=== PATIENT | female | born 1940 | race Caucasian/White ===

== ENCOUNTER 2016-11-10 08:00 | Outpatient (CLI) | payer MEDICARE, MEDICAID | END 2016-11-10 08:01 | disposition home or self-care (01) | DX: J11.1 Influenza due to unidentified influenza virus with other respiratory manifestations (principal) ==

== ENCOUNTER 2016-12-07 14:09 | Outpatient (CLI) | payer MEDICARE, MEDICAID | END 2016-12-07 14:10 | disposition home or self-care (01) | DX: Z12.39 Encounter for other screening for malignant neoplasm of breast (principal); Z85.3 Personal history of malignant neoplasm of breast ==

== ENCOUNTER 2016-12-18 19:20 | Outpatient (CLI) | payer MEDICARE, MEDICAID | END 2016-12-18 23:59 | DX: C50.919 Malignant neoplasm of unspecified site of unspecified female breast (principal); E78.5 Hyperlipidemia, unspecified ==

== ENCOUNTER 2017-04-09 07:30 | Outpatient (CLI) | payer MEDICARE, MEDICAID ==
[2017-04-09 08:47] LABS: BASOPHILS # (AUTO) 0.1 10^3/uL (0.0-0.1); BASOPHILS % (AUTO) 1.3 %; EOSINOPHILS % (AUTO) 10.5 %; HCT - HEMATOCRIT 40.8 % (37.0-47.0); HGB - HEMOGLOBIN 13.5 g/dL (12.0-16.0); LYMPHOCYTES # (AUTO) 3.1 10^3/uL (1.5-3.5); LYMPHOCYTES % (AUTO) 33.2 %; MEAN CORPUSCULAR HEMOGLOBIN 29.5 pg (27.0-31.0); MEAN CORPUSCULAR HGB CONC 33.1 g/dL (32.0-36.0); MEAN CORPUSCULAR VOLUME 89.2 fL (81.0-99.0); MEAN PLATELET VOLUME 11.3 fL (7.9-10.8); MONOCYTES # (AUTO) 0.9 10^3/uL (0.0-1.0); MONOCYTES % (AUTO) 9.8 %; NEUTROPHILS # (AUTO) 4.2 10^3/uL (1.5-6.6); NEUTROPHILS % (AUTO) 45.2 %; RED BLOOD COUNT 4.57 10^6/uL (4.20-5.40); RED CELL DISTRIBUTION WIDTH 13.1 % (12.0-15.0); UNCORRECTED WHITE BLOOD COUNT 9.3 x10^3/uL; WHITE BLOOD COUNT 9.3 x10^3/uL (4.8-10.8)
[2017-04-09 08:53] LABS: ALBUMIN/GLOBULIN RATIO 0.9 (1.0-2.2); BILIRUBIN,TOTAL 0.3 mg/dL (0.2-1.0); CALCIUM 9.5 mg/dL (8.5-10.3); CREATININE 1.5 mg/dL (0.4-1.0); POTASSIUM 4.1 mmol/L (3.5-5.0)
== END 2017-04-09 07:31 | disposition home or self-care (01) ==
LOC: LAB.R 07:30
DX: I10 Essential (primary) hypertension (principal)
CPT/HCPCS: 80053; 84443; 85025

== ENCOUNTER 2017-05-25 08:00 | Outpatient (CLI) | payer MEDICARE, MEDICAID ==
[2017-05-25 12:44] LABS: ALBUMIN/GLOBULIN RATIO 0.9 (1.0-2.2); BILIRUBIN,TOTAL 0.3 mg/dL (0.2-1.0); CREATININE 1.6 mg/dL (0.4-1.0); TOTAL PROTEIN 7.6 g/dL (6.7-8.2)
[2017-05-25 12:45] LABS: CALCIUM 9.7 mg/dL (8.5-10.3); POTASSIUM 4.2 mmol/L (3.5-5.0)
== END 2017-05-25 08:01 | disposition home or self-care (01) ==
LOC: LAB.R 08:00
DX: I67.9 Cerebrovascular disease, unspecified (principal); D05.90 Unspecified type of carcinoma in situ of unspecified breast; I10 Essential (primary) hypertension
CPT/HCPCS: 80053; 83615

== ENCOUNTER 2017-06-16 10:19 | Outpatient (CLI) | payer MEDICARE, MEDICAID ==
--- NOTE | 2017-06-16 15:13 | Mammography Report ---
DIGITAL DIAGNOSTIC BILATERAL MAMMOGRAM: 06/16/2017 CLINICAL INDICATION: Right breast cancer, status post lumpectomy. TECHNIQUE: Bilateral CC and MLO views, right true lateral view. The examination had to be performed i n a wheelchair, so magnification views could not be performed. COMPARISON: 12/07/2016, 03/30/2016, 03/24/2016. FINDINGS: The breasts demonstrate scattered fibroglandular densities bilaterally. Postoperative meza ges in the right breast are stable. No suspicious masses, clustered microcalcifications, or regions o f architectural distortion are identified. A few punctate, typically benign calcifications are presen t. IMPRESSION: PROBABLE BENIGN POSTOPERATIVE CHANGES IN THE RIGHT BREAST. RECOMMENDATION: DIAGNOSTIC RIGHT MAMMOGRAM IN SIX MONTHS, TO ASSURE STABILITY. BIRADS CATEGORY 3-PROBABLE BENIGN FINDINGS. STANDARD QUALIFYING STATEMENTS 1. This examination was reviewed with the aid of Computer-Aided Detection (CAD). 2. A negative or benign imaging report should not delay biopsy if clinically suspicious findings are present. Consider surgical consultation if warranted. More than 5% of cancers are not identified by i maging. 3. Dense breasts may obscure an underlying neoplasm. JOB #: [id number] EXT JOB #:[id number]
== END 2017-06-16 10:20 | disposition home or self-care (01) ==
LOC: DI 10:19
PROVIDERS: ATTEND Internal Medicine Hematology & Oncology
DX: C50.911 Malignant neoplasm of unspecified site of right female breast (principal); M81.0 Age-related osteoporosis without current pathological fracture; Z98.890 Other specified postprocedural states
CPT/HCPCS: 77080; G0204; 77066

== ENCOUNTER 2017-06-16 10:19 | Outpatient (CLI) | payer MEDICARE, MEDICAID ==
--- NOTE | 2017-06-17 12:01 | DEXA Report ---
DEXA SCAN: 06/16/2017 CLINICAL INDICATION: Osteoporosis. TECHNIQUE: Dual energy x-ray absorptiometry (DXA) was performed on a [employer] system. Regions measured are the AP spine, femoral neck, and, if needed, forearm. COMPARISON: 05/19/2016. In accordance with the International Society for Clinical Densitometry (ISCD) guidelines, data from previous exams may be reanalyzed using current recommendations and techniques. This is done to allow a more accurate basis for comparison with the current study. FINDINGS: The data for the lumbar spine is as follows: REGION BMD (g/cm/cm) T-SCORE Z-SCORE L1 0.800 -2.8 -1.1 L2 0.881 -2.7 -1.0 L3 0.886 -2.6 -1.0 L4 0.898 -2.5 -0.9 TOTAL 0.868 -2.6 -1.0 NOTE: All evaluable vertebrae are used for classification. The data for the hip is as follows: REGION BMD (g/cm/cm) T-SCORE Z-SCORE Neck 0.610 -3.1 -1.1 TOTAL 0.627 -3.0 -1.2 NOTE: The femoral neck or total proximal femur, whichever is lowest, is used for classification. DXA RESULTS SUMMARY: Spine SCAN DATE AGE BMD T-SCORE BMD CHANGE VS BASELINE BMD CHANGE VS PREVIOUS 4/16/2017 [age] 0[age]868 --- -0.059 -6.4 05/19/2016 [age] 0[age]927 --- --- --- * Denotes significant change at the 95% confidence level. Denotes dissimilar scan types or analysis methods. DXA RESULTS SUMMARY: Total hip SCAN DATE AGE BMD T-SCORE BMD CHANGE VS BASELINE BMD CHANGE VS PREVIOUS 4/16/2017 [age] 0.627 --- 0.028 4.7 05/19/2017 76.1 0.599 --- --- --- * Denotes significant change at the 95% confidence level. Denotes dissimilar scan types or analysis methods. IMPRESSION: 1. THE WHO CLASSIFICATION BASED ON THE INTERNATIONAL REFERENCE STANDARD IS OSTEOPOROSIS. THE FRACTURE RISK IS HIGH. 2. THERE HAS BEEN NO STATISTICALLY SIGNIFICANT INTERVAL CHANGE IN BONE MINERAL DENSITY FROM 05/19/2016. RECOMMENDATION: Patients with diagnosis of osteoporosis or osteopenia should have regular bone mineral density assessment. For those eligible for Medicare, routine testing is allowed once every 2 years. Testing frequency can be increased for patients who have rapidly progressing disease or for those who are receiving medical therapy to restore bone mass. COMMENT: World Health Organization (WHO) definitions for osteoporosis and osteopenia: NORMAL BMD: T-score at -1.0 or higher, fracture risk is low. OSTEOPENIA BMD: T-score between -1.0 and -2.5, fracture risk is increased. OSTEOPOROSIS BMD: T-score at -2.5 or lower, fracture risk high. National Osteoporosis Foundation recommends: 1. Obtain adequate dietary calcium (at least 1200 mg per day) and vitamin D (400 -800 international units per day). 2. Participate, as appropriate, in regular weightbearing and muscle- strengthening exercise. 3. Avoid tobacco use and reduce alcohol and caffeine intake. 4. For more detailed information see the website at www.NOF.org. MTDD
== END 2017-06-16 10:20 | disposition home or self-care (01) ==
LOC: DI 10:19
PROVIDERS: ATTEND Internal Medicine Hematology & Oncology
DX: M81.0 Age-related osteoporosis without current pathological fracture (principal); C50.911 Malignant neoplasm of unspecified site of right female breast
CPT/HCPCS: 77080

== ENCOUNTER 2017-06-18 09:55 | Outpatient (CLI) | payer MEDICARE, MEDICAID ==
[2017-06-18 15:45] LABS: ALBUMIN/GLOBULIN RATIO 0.9 (1.0-2.2); BILIRUBIN,TOTAL 0.4 mg/dL (0.2-1.0); CALCIUM 9.7 mg/dL (8.5-10.3); CREATININE 1.5 mg/dL (0.4-1.0); POTASSIUM 3.8 mmol/L (3.5-5.0); TOTAL PROTEIN 7.8 g/dL (6.7-8.2)
== END 2017-06-18 09:56 | disposition home or self-care (01) ==
LOC: LAB.R 09:55
DX: C50.919 Malignant neoplasm of unspecified site of unspecified female breast (principal)
CPT/HCPCS: 80053; 83615

== ENCOUNTER 2017-12-27 12:15 | Outpatient (CLI) | payer MEDICARE, MEDICAID ==
[2017-12-27 15:22] LABS: BASOPHILS # (AUTO) 0.1 10^3/uL (0.0-0.1); BASOPHILS % (AUTO) 1.4 %; EOSINOPHILS # (AUTO) 0.7 10^3/uL (0.0-0.7); EOSINOPHILS % (AUTO) 8.6 %; LYMPHOCYTES % (AUTO) 34.9 %; MEAN CORPUSCULAR HEMOGLOBIN 29.9 pg (27.0-31.0); MEAN CORPUSCULAR HGB CONC 32.7 g/dL (32.0-36.0); MEAN CORPUSCULAR VOLUME 91.4 fL (81.0-99.0); MEAN PLATELET VOLUME 11.3 fL (7.9-10.8); MONOCYTES # (AUTO) 0.7 10^3/uL (0.0-1.0); NEUTROPHILS % (AUTO) 47.1 %; PLT - PLATELET COUNT 250 10^3/uL (130-450); RED BLOOD COUNT 4.69 10^6/uL (4.20-5.40); RED CELL DISTRIBUTION WIDTH 13.2 % (12.0-15.0); WHITE BLOOD COUNT 8.5 x10^3/uL (4.8-10.8)
== END 2017-12-27 12:16 | disposition home or self-care (01) ==
LOC: LAB.R 12:15
DX: I12.9 Hypertensive chronic kidney disease with stage 1 through stage 4 chronic kidney disease, or unspecified chronic kidney disease (principal); N18.3 Chronic kidney disease, stage 3 (moderate)
CPT/HCPCS: 80053; 85025

== ENCOUNTER 2017-12-28 15:20 | Outpatient (CLI) | payer MEDICARE, MEDICAID ==
[2017-12-28 19:01] LABS: ALBUMIN 3.4 g/dL (3.2-5.5); BILIRUBIN,TOTAL 0.2 mg/dL (0.2-1.0); CALCIUM 9.1 mg/dL (8.5-10.3); CREATININE 1.5 mg/dL (0.4-1.0); TOTAL PROTEIN 6.8 g/dL (6.7-8.2)
== END 2017-12-28 15:21 | disposition home or self-care (01) ==
LOC: LAB.R 15:20
DX: I10 Essential (primary) hypertension (principal)
CPT/HCPCS: 80053

== ENCOUNTER 2018-02-02 13:01 | Outpatient (CLI) | payer MEDICARE, MEDICAID ==
--- NOTE | 2018-02-02 13:52 | Mammography Report ---
DIGITAL DIAGNOSTIC RIGHT MAMMOGRAM: 02/02/2018 CLINICAL INDICATION: Followup right breast cancer, status post lumpectomy. COMPARISON: 06/16/2017, 12/07/2016, 06/12/2016, 03/30/2016, 03/24/2016. TECHNIQUE: Right CC, true lateral, MLO views were obtained. Due to the patient's general condition, magnification views could not be performed. FINDINGS: The right breast demonstrates scattered fibroglandular densities. Postoperative changes are stable. A few punctate, typically benign calcifications are present. No suspicious masses, clustered microcalcifications, or regions of architectural distortion are identified. IMPRESSION: PROBABLE BENIGN POSTOPERATIVE CHANGES. RECOMMENDATIONS: Diagnostic bilateral mammogram in 6 months. BIRADS CATEGORY 3 - PROBABLE BENIGN FINDINGS. STANDARD QUALIFYING STATEMENTS: 1. This examination was reviewed with the aid of Computer-Aided Detection (CAD). 2. A negative or benign imaging report should not delay biopsy if clinically suspicious findings are present. Consider surgical consultation if warranted. More than 5% of cancers are not identified by imaging. 3. Dense breasts may obscure an underlying neoplasm. TD: 02/02/2018 13:51
== END 2018-02-02 13:02 | disposition home or self-care (01) ==
LOC: DI 13:01
PROVIDERS: ATTEND Internal Medicine Hematology & Oncology
DX: C50.111 Malignant neoplasm of central portion of right female breast (principal)

== ENCOUNTER 2018-05-20 08:00 | Outpatient (CLI) | payer MEDICARE, MEDICAID ==
[2018-05-20 17:05] LABS: BASOPHILS # (AUTO) 0.1 10^3/uL (0.0-0.1); EOSINOPHILS # (AUTO) 0.6 10^3/uL (0.0-0.7); EOSINOPHILS % (AUTO) 6.5 %; HGB - HEMOGLOBIN 13.9 g/dL (12.0-16.0); LYMPHOCYTES # (AUTO) 3.2 10^3/uL (1.5-3.5); LYMPHOCYTES % (AUTO) 33.2 %; MEAN CORPUSCULAR HEMOGLOBIN 30.3 pg (27.0-31.0); MEAN CORPUSCULAR HGB CONC 32.8 g/dL (32.0-36.0); MEAN CORPUSCULAR VOLUME 92.5 fL (81.0-99.0); MEAN PLATELET VOLUME 11.3 fL (7.9-10.8); MONOCYTES # (AUTO) 1.1 10^3/uL (0.0-1.0); MONOCYTES % (AUTO) 11.6 %; NEUTROPHILS # (AUTO) 4.5 10^3/uL (1.5-6.6); NEUTROPHILS % (AUTO) 47.7 %; PLT - PLATELET COUNT 260 10^3/uL (130-450); RED BLOOD COUNT 4.57 10^6/uL (4.20-5.40); RED CELL DISTRIBUTION WIDTH 13.2 % (12.0-15.0); WHITE BLOOD COUNT 9.5 x10^3/uL (4.8-10.8)
[2018-05-20 17:35] LABS: ALBUMIN 3.3 g/dL (3.2-5.5); ALBUMIN/GLOBULIN RATIO 0.8 (1.0-2.2); BILIRUBIN,TOTAL 0.7 mg/dL (0.2-1.0); CALCIUM 9.5 mg/dL (8.5-10.3); CREATININE 1.7 mg/dL (0.4-1.0); MAGNESIUM 2.1 mg/dL (1.7-2.8); TOTAL PROTEIN 7.6 g/dL (6.7-8.2)
[2018-05-20 17:39] LABS: PLATELET ESTIMATE, MANUAL NORMAL (130-450,000) (NORMAL); PLATELET MORPHOLOGY PLATELET CLUMPING (NORMAL); RBC MORPHOLOGY (MULTIPLE) NORMAL APPEARANCE (NORMAL)
== END 2018-05-20 08:01 | disposition home or self-care (01) ==
LOC: LAB.R 08:00
DX: R79.89 Other specified abnormal findings of blood chemistry (principal); E61.2 Magnesium deficiency
CPT/HCPCS: 80053; 83735; 85025

== ENCOUNTER 2018-08-11 08:38 | Outpatient (CLI) | payer MEDICARE, MEDICAID ==
--- NOTE | 2018-08-11 10:14 | Mammography Report ---
Reason: RIGHT BREAST CANCER Procedure Date: 08/11/2018 Accession Number: [id number] / [id number] Procedure: SHASTA - Diagnostic Dig Bilat CPT Code: FULL RESULT: EXAM: Diagnostic Dig Bilat DATE: 08/11/2018 9:41 AM CLINICAL HISTORY: Status post right lumpectomy 2016 TECHNIQUE: Bilateral digital imaging. Images are limited due to the patient's inability to cooperate. COMPARISON: 02/02/2018, 06/16/2017, 12/07/2016 and 06/12/2016 FINDINGS: There are scattered fibroglandular densities. Postsurgical changes are present. No suspicious microcalcifications, dominant mass, or new finding IMPRESSION: Benign findings RECOMMENDATION: Routine screening in 1 year unless there is a clinical change.. BIRADS CATEGORY 2: Benign findings STANDARD QUALIFYING STATEMENTS: 1. This examination was reviewed with the aid of Computer-Aided Detection (CAD). 2. A negative or benign imaging report should not delay biopsy if clinically suspicious findings are present. Consider surgical consultation if warrented. More than 5% of cancers are not identified by imaging. 3. Dense breasts may obscure an underlying neoplasm.
== END 2018-08-11 08:39 | disposition home or self-care (01) ==
LOC: DI 08:38
PROVIDERS: ATTEND Internal Medicine Hematology & Oncology
DX: C50.811 Malignant neoplasm of overlapping sites of right female breast (principal)
CPT/HCPCS: 77066

== ENCOUNTER 2018-08-31 14:00 | Outpatient (CLI) | payer MEDICARE, MEDICAID ==
[2018-08-31 14:58] LABS: CALCIUM 9.8 mg/dL (8.5-10.3)
== END 2018-08-31 14:01 ==
LOC: LAB.R 14:00
DX: N18.3 Chronic kidney disease, stage 3 (moderate) (principal)
CPT/HCPCS: 80048

== ENCOUNTER 2018-09-19 08:00 | Outpatient (CLI) | payer MEDICARE, MEDICAID ==
[2018-09-19 18:45] LABS: CALCIUM 9.8 mg/dL (8.5-10.3); CREATININE 0.7 mg/dL (0.4-1.0)
== END 2018-09-19 08:01 | disposition home or self-care (01) ==
LOC: LAB.R 08:00
PROVIDERS: ATTEND Family Medicine
DX: N18.3 Chronic kidney disease, stage 3 (moderate) (principal)
CPT/HCPCS: 80048

== ENCOUNTER 2018-10-24 14:15 | Outpatient (CLI) | payer MEDICARE, MEDICAID ==
[2018-10-24 16:46] LABS: BASOPHILS # (AUTO) 0.1 10^3/uL (0.0-0.1); BASOPHILS % (AUTO) 1.3 %; EOSINOPHILS # (AUTO) 0.8 10^3/uL (0.0-0.7); EOSINOPHILS % (AUTO) 9.6 %; HGB - HEMOGLOBIN 14.6 g/dL (12.0-16.0); LYMPHOCYTES # (AUTO) 2.5 10^3/uL (1.5-3.5); LYMPHOCYTES % (AUTO) 29.8 %; MEAN CORPUSCULAR HEMOGLOBIN 30.1 pg (27.0-31.0); MEAN CORPUSCULAR HGB CONC 32.4 g/dL (32.0-36.0); MEAN PLATELET VOLUME 11.2 fL (7.9-10.8); MONOCYTES # (AUTO) 0.6 10^3/uL (0.0-1.0); MONOCYTES % (AUTO) 7.2 %; NEUTROPHILS # (AUTO) 4.4 10^3/uL (1.5-6.6); NEUTROPHILS % (AUTO) 52.1 %; PLT - PLATELET COUNT 269 10^3/uL (130-450); RED BLOOD COUNT 4.86 10^6/uL (4.20-5.40); RED CELL DISTRIBUTION WIDTH 12.7 % (12.0-15.0); WHITE BLOOD COUNT 8.4 x10^3/uL (4.8-10.8)
[2018-10-24 19:30] LABS: PLATELET ESTIMATE, MANUAL NORMAL (130-450,000) (NORMAL); RBC MORPHOLOGY (MULTIPLE) NORMAL APPEARANCE (NORMAL)
== END 2018-10-24 14:16 | disposition home or self-care (01) ==
LOC: LAB.R 14:15
DX: D64.9 Anemia, unspecified (principal)
CPT/HCPCS: 85025

== ENCOUNTER 2018-11-25 11:52 | Outpatient (CLI) | payer MEDICARE, MEDICAID | END 2018-11-25 11:53 | disposition critical access hospital (66) | LOC: EMS 11:52 | PROVIDERS: ATTEND Surgery | DX: R07.9 Chest pain, unspecified (principal); R06.02 Shortness of breath | CPT/HCPCS: A0425; A0427 ==

== ENCOUNTER 2018-12-01 10:19 | Outpatient (CLI) | payer MEDICARE, MEDICAID | END 2018-12-01 10:20 | disposition critical access hospital (66) | LOC: EMS 10:19 | PROVIDERS: ATTEND Surgery | DX: R51 Headache (principal); W17.89XA Other fall from one level to another, initial encounter; Y93.89 Activity, other specified; Y92.009 Unspecified place in unspecified non-institutional (private) residence as the place of occurrence of the external cause | CPT/HCPCS: A0425; A0429 ==

== ENCOUNTER 2018-12-01 10:25 | Emergency (ER) | payer MEDICARE, MEDICAID ==
--- NOTE | 2018-12-01 10:37 | ED Physician Documentation ---
PD HPI HEAD INJURY - Stated complaint Stated Complaint: GLF - Chief complaint Chief Complaint: Trauma Hd/Nk - History obtained from History obtained from: Patient, EMS - History of Present Illness Mechanism of head injury: Fell Where head injury occurred: Home Timing - onset: Today Location of injury: Left Quality of pain: Pain, Throbbing Associated symptoms: Nausea / vomiting. No: LOC, Neck pain, Paresthesias, Seizures, Ear drainage, Nasal drainage Symptoms improve with: Rest Symptoms worsen with: Palpation, Movement Contributing factors: Other (dementia) Similar symptoms before: Has not had sx before Recently seen: Not recently seen - Additional information Additional information: 78-year-old female with a history of dementia and CVA with left-sided weakness was in her wheelchair [place] [employer] today when she leaned forward and fell out of the wheel wheelchair onto her face. She has a large laceration above her left eye. She indicates that she has been feeling sick recently and does have some nausea now she has a bit of a headache. She has had a cough as well. Review of Systems Constitutional: denies: Fever Eyes: denies: Loss of vision, Decreased vision Nose: denies: Congestion Throat: denies: Sore throat Cardiac: denies: Chest pain / pressure Respiratory: reports: Cough GI: reports: Nausea. denies: Abdominal Pain, Vomiting, Constipation, Diarrhea : denies: Dysuria, Frequency Skin: denies: Rash Musculoskeletal: denies: Neck pain, Back pain, Extremity pain PD PAST MEDICAL HISTORY - Past Medical History Cardiovascular: Hypertension, High cholesterol Respiratory: None Endocrine/Autoimmune: None GI: GERD : None HEENT: None Psych: Depression Musculoskeletal: Osteoarthritis Derm: None - Past Surgical History Past Surgical History: Yes General: Appendectomy - Present Medications Home Medications: Ambulatory Orders Medication Instructions Recorded Confirmed Loratadine [Claritin] 10 mg PO DAILY 06/27/14 11/25/18 raNITIdine [Zantac] 150 mg PO QPM 06/27/14 11/25/18 Fluticasone [Flonase] 1 sprays TAY QPM 08/23/14 11/25/18 Atorvastatin Calcium 20 mg PO QPM 05/18/16 11/25/18 Anastrozole [Arimidex] 1 mg PO DAILY 06/25/16 11/25/18 Multivitamin [Theragran] 1 each PO DAILY 07/20/16 11/25/18 Calcium Carbonate [Calcium] 600 mg PO BID 06/20/18 11/25/18 Cholecalciferol (Vitamin D3) 1,000 unit PO DAILY 06/20/18 11/25/18 [Vitamin D3] Acetaminophen [Tylenol Extra 1,000 mg PO Q6H PRN 11/25/18 11/25/18 Strength] Aspirin Chewable [St Temo 324 mg PO DAILY 11/25/18 11/25/18 Aspirin] House Bowel Program 1 each REVIEW DAILY 11/25/18 11/25/18 Venlafaxine ER [Effexor ER] 37.5 mg PO DAILY 11/25/18 11/25/18 amLODIPine [Norvasc] 5 mg PO DAILY 11/25/18 11/25/18 Carvedilol [Coreg] 3.125 mg PO BID #60 tablet 11/26/18 - Allergies Allergies/Adverse Reactions: Allergies Allergy/AdvReac Type Severity Reaction Status Date / Time codeine Allergy Unknown Verified 12/01/18 10:32 Penicillins Allergy Not known Verified 12/01/18 10:32 sulfamethoxazole Allergy Unknown Verified 12/01/18 10:32 [From ] trimethoprim [From ] Allergy Unknown Verified 12/01/18 10:32 - Social History Does the pt smoke?: No Smoking Status: Never smoker Does the pt drink ETOH?: No Does the pt have substance abuse?: No - Immunizations Immunizations are current?: Yes - POLST Patient has POLST: No PD ED PE NORMAL - Vitals Vital signs reviewed: Yes (hypertensive ) - General General: No acute distress, Well developed/nourished, Other (gapping laceration above the left eye is impressive Y-shaped and 6cm total. The laceration is throught the eyebrow and the jose-orbital tissues are markedly swollen and ecchymotic. ) - HEENT HEENT: PERRL, EOMI, Other (There is the gapping wound the eye under the swelling is intact with vision normal per patient. There is no crepitance, step off or other suggestion of fracture. There is no entrapment of the EOM) - Neck Neck: Supple, no meningeal sign, No bony TTP - Respiratory Respiratory: No respiratory distress - Derm Derm: Normal color, Warm and dry, No rash - Extremities Extremities: No deformity, No edema - Neuro Neuro: No motor deficit, Other (speech has a delay in execution of motor commands. ) Eye Opening: To Voice Motor: Obeys Commands Verbal: Oriented GCS Score: 14 - Psych Psych: Normal mood, Normal affect Results - Vitals Vitals: Vital Signs - 24 hr 12/01/18 12/01/18 10:28 12:26 Temperature 36.6 C Heart Rate 79 94 Respiratory 20 16 Rate Blood Pressure 178/93 H 160/124 H O2 Saturation 96 99 Oxygen O2 Source [] Room air O2 Source Room air - Labs Labs: Laboratory Tests 12/01/18 12/01/18 12/01/18 11:05 11:05 11:05 WBC 11.1 H RBC 4.99 Hgb 14.8 Hct 44.3 MCV 88.8 MCH 29.7 MCHC 33.4 RDW 13.0 Plt Count 332 MPV 10.4 Neut # (Auto) 7.2 H Lymph # (Auto) 1.9 Island # (Auto) 1.1 H Eos # (Auto) 0.8 H Baso # (Auto) 0.1 Absolute Nucleated RBC 0.01 Nucleated RBC % 0.1 Manual Slide Review Indicated Platelet Morphology RARE GIANT PLATELETS Sodium 141 Potassium 3.7 Chloride 100 L Carbon Dioxide 29 Anion Gap 12.0 BUN 33 H Creatinine 1.5 H Estimated GFR (MDRD) 33 L Glucose 140 H Calcium 10.3 Total Bilirubin 0.4 AST 21 ALT 13 Alkaline Phosphatase 114 Troponin I < 0.04 Total Protein 8.6 H Albumin 3.7 Globulin 4.9 H Albumin/Globulin Ratio 0.8 L Lipase 59 H Urine Color Urine Clarity Urine pH Ur Specific Dubois Urine Protein Urine Glucose (UA) Urine Ketones Urine Occult Blood Urine Nitrite Urine Bilirubin Urine Urobilinogen Ur Leukocyte Esterase Ur Microscopic Review Urine Culture Comments 12/01/18 11:15 WBC RBC Hgb Hct MCV MCH MCHC RDW Plt Count MPV Neut # (Auto) Lymph # (Auto) Island # (Auto) Eos # (Auto) Baso # (Auto) Absolute Nucleated RBC Nucleated RBC % Manual Slide Review Platelet Morphology Sodium Potassium Chloride Carbon Dioxide Anion Gap BUN Creatinine Estimated GFR (MDRD) Glucose Calcium Total Bilirubin AST ALT Alkaline Phosphatase Troponin I Total Protein Albumin Globulin Albumin/Globulin Ratio Lipase Urine Color YELLOW Urine Clarity CLEAR Urine pH 7.0 Ur Specific Dubois 1.020 Urine Protein NEGATIVE Urine Glucose (UA) NEGATIVE Urine Ketones NEGATIVE Urine Occult Blood NEGATIVE Urine Nitrite NEGATIVE Urine Bilirubin NEGATIVE Urine Urobilinogen 0.2 (NORMAL) Ur Leukocyte Esterase NEGATIVE Ur Microscopic Review NOT INDICATED Urine Culture Comments NOT INDICATED - Rads (name of study) CT head without Radiology: Prelim report reviewed (Impression: 1. Soft tissue swelling over the left superior orbital rim but no underlying fracture. 2 No evidence of acute intracranial injury or hemorrhage. 3 Sequelae of remote bilateral infarctions as described, more prominent on the right.), EMP read indepedently, See rad report CT cervical spine Radiology: Prelim report reviewed (Impression: 1. Multilevel degenerative changes commensurate with age. No appreciable acute fracture or malalignment.), EMP read indepedently, See rad report chest Radiology: Prelim report reviewed (Impression: 1. No appreciable fracture or pneumothorax. 2 Stable convex contour prominence of the right superior mediastinum as described, vascular ectasia/aneurysm is favored given stability. 3 Stable mild cardiomegaly. No edema.), EMP read indepedently, See rad report Procedures - Laceration (location) left eyebrow Length in cm: 6 Wound type: Stellate, Irregular, Clean Neurovascular status: Sensory intact, Motor intact Anesthesia: Lidocaine 1%, With bicarb Wound Preparation: Hibiclens, Irrigated copiously NS, Wound explored, To the base, Multiple flaps aligned Skin layer closure: Nylon, Interrupted, Size #-0 - enter number (5-0 and 6-0) Other: Patient tolerated well, No complications, Neurovascular intact, Tetanus UTD Complexity: Intermediate PD MEDICAL DECISION MAKING - ED course Complexity details: reviewed old records, reviewed results, re-evaluated umm pinedo, considered differential, d/w patient ED course: 78-year-old female with a history of CVA and hypertension comes to the emergency department by ambulance from [facility] after falling forward out of her wheelchair and striking her forehead. She does not usually get out of her wheelchair by herself and she attempted this today. She denies any loss of consciousness she does have some nausea CT scan of the head was without evidence of intracranial hemorrhage or evidence of fracture along the orbital rim. The patient's laceration is repaired in the emergency department. The wound was gaping and very impressive looking and appears to have come back together. Departure - Departure Disposition: 01 Home, Self Care Clinical Impression: Fall from ground level Eyebrow laceration Qualifiers: Encounter type: initial encounter Laterality: left Qualified Code(s): S01.112A - Laceration without foreign body of left eyelid and periocular area, initial encounter Condition: Stable Instructions: ED Head Injury Closed, ED Laceration Facial Sutr Tape Follow-Up: Julián Orozco MD [Primary Care Provider] - Comments: Sutures should be removed in 5-7 days.
--- NOTE | 2018-12-01 11:15 | CT Report ---
Reason: fall deep lac to left forehead. Procedure Date: 12/01/2018 Accession Number: [id number] / [id number] Procedure: CT - Head W/O CPT Code: FULL RESULT: EXAM: CT HEAD EXAM DATE: 12/01/2018 10:47 AM. CLINICAL HISTORY: Fall, deep laceration to left forehead. COMPARISON: HEAD W/O 08/30/2015 12:46 PM. TECHNIQUE: Multiaxial CT images were obtained from the foramen magnum to the vertex. Reformats: Sagittal and coronal. IV contrast: None. In accordance with CT protocol optimization, one or more of the following dose reduction techniques were utilized for this exam: automated exposure control, adjustment of mA and/or KV based on patient size, or use of iterative reconstructive technique. FINDINGS: Parenchyma: There is stable encephalomalacia involving the entirety of the right MCA distribution parenchyma of the right hemisphere from prior infarction. There is encephalomalacia of the left frontal lobe, new since comparison studies of 2014 but also consistent with remote infarction. No appreciable acute infarction. There is no evidence of acute intracranial hemorrhage, mass-effect or abnormal extra-axial fluid collection. Extraaxial Spaces: The ventricles, sulci and cisterns are prominent consistent with aging-related atrophy and ex vacuo dilatation from prior infarction. No subdural or epidural collections identified. Ventricles: As above. Sinuses and Orbits: Imaged paranasal sinuses, orbits, and mastoids show no significant abnormality. Bones: No evidence of fracture or calvarial defect. Other: Soft tissue swelling over the left superior orbital ridge. IMPRESSION: 1. Soft tissue swelling over the left superior orbital rim but no underlying fracture. 2. No evidence of acute intracranial injury or hemorrhage. 3. Sequela of remote bilateral infarctions as described, more prominent on the right. RADIA
[2018-12-01 11:17] LABS: BASOPHILS # (AUTO) 0.1 10^3/uL (0.0-0.1); EOSINOPHILS # (AUTO) 0.8 10^3/uL (0.0-0.7); EOSINOPHILS % (AUTO) 6.9 %; HGB - HEMOGLOBIN 14.8 g/dL (12.0-16.0); LYMPHOCYTES # (AUTO) 1.9 10^3/uL (1.5-3.5); MEAN CORPUSCULAR HEMOGLOBIN 29.7 pg (27.0-31.0); MEAN CORPUSCULAR HGB CONC 33.4 g/dL (32.0-36.0); MEAN CORPUSCULAR VOLUME 88.8 fL (81.0-99.0); MEAN PLATELET VOLUME 10.4 fL (7.9-10.8); MONOCYTES # (AUTO) 1.1 10^3/uL (0.0-1.0); MONOCYTES % (AUTO) 10.3 %; NEUTROPHILS # (AUTO) 7.2 10^3/uL (1.5-6.6); NEUTROPHILS % (AUTO) 64.8 %; PLT - PLATELET COUNT 332 10^3/uL (130-450); RED BLOOD COUNT 4.99 10^6/uL (4.20-5.40); WHITE BLOOD COUNT 11.1 x10^3/uL (4.8-10.8)
--- NOTE | 2018-12-01 11:20 | XRAY Report ---
Reason: cough wheezing Procedure Date: 12/01/2018 Accession Number: [id number] / [id number] Procedure: XR - Chest 1 View X-Ray CPT Code: 90339 FULL RESULT: EXAM: CHEST RADIOGRAPHY EXAM DATE: 12/01/2018 10:49 AM. CLINICAL HISTORY: Cough, wheezing. Ground-level fall. COMPARISON: CHEST 2 VIEW 11/25/2018 12:43 PM CHEST 1 VIEW 06/12/2016 9:37 AM. TECHNIQUE: 1 view. FINDINGS: Lungs/Pleura: No focal opacities evident. No pleural effusion. No pneumothorax. Mediastinum: Heart size remains borderline enlarged for technique. There is a stable convex contour prominence of the right paratracheal mediastinum unchanged compared to 2016. Differential would include stable mass versus vascular ectasia and/or aneurysm (favored). Other: No appreciable fractures. IMPRESSION: 1. No appreciable fracture or pneumothorax. 2. Stable convex contour prominence of the right superior mediastinum as described, vascular ectasia/aneurysm is favored given stability. 3. Stable mild cardiomegaly. No edema. RADIA
--- NOTE | 2018-12-01 11:31 | CT Report ---
Reason: fall head injury Procedure Date: 12/01/2018 Accession Number: [id number] / [id number] Procedure: CT - Cervical Spine W/O CPT Code: FULL RESULT: EXAM: CT CERVICAL SPINE WITHOUT CONTRAST DATE: 12/01/2018 10:55 AM. HISTORY: Fall, head injury. COMPARISONS: HEAD W/O 08/30/2015 12:46 PM. TECHNIQUE: Thin-section axial images were acquired of the cervical spine without contrast. Post-processing: Coronal and sagittal reformats. Other: None. In accordance with CT protocol optimization, one or more of the following dose reduction techniques were utilized for this exam: automated exposure control, adjustment of mA and/or KV based on patient size, or use of iterative reconstructive technique. FINDINGS: Alignment: There is straightening of the cervical lordosis. There is 2 mm of degenerative appearing anterolisthesis of C3 on C4 and T1 on T2. In addition, the head is tilted slightly downward to the left and is rotated to the right within physiologic limits. Bones: No fracture or bone lesion. Interspace Levels/Facets: C1-C2: Unremarkable. C2-C3: Mild bilateral facet arthrosis. C3-C4: Mild disk space narrowing. 2 mm of degenerative appearing anterolisthesis. Moderate facet arthrosis. C4-C5: Moderate degenerative disk space narrowing with endplate sclerosis and mild marginal osteophyte. Moderate left-sided facet arthrosis C5-C6: Moderate degenerative disk space narrowing and mild marginal osteophyte. C6-C7: Moderate disk space narrowing and mild marginal osteophyte. C7-T1: Unremarkable. Musculature: Normal. No fatty atrophy. Other: The paravertebral and prevertebral soft tissues are unremarkable. Nonspecific mild pleural parenchymal scarring changes noted. Note: Right paratracheal convexity noted on chest x-ray is confirmed to represent vascular ectasia on CT. IMPRESSION: 1. Multilevel degenerative changes commensurate with age. No appreciable acute fracture or malalignment. Note: Stable right paratracheal convexity mentioned on chest x-ray report is confirmed to represent vascular ectasia on this CT. RADIA
[2018-12-01 11:33] LABS: BILIRUBIN,URINE NEGATIVE (NEGATIVE); GLUCOSE, URINE (UA) NEGATIVE (NEGATIVE); KETONES,URINE (UA) NEGATIVE (NEGATIVE); LEUKOCYTE ESTERASE, URINE NEGATIVE (NEGATIVE); NITRITE,URINE NEGATIVE (NEGATIVE); OCCULT BLOOD,URINE NEGATIVE (NEGATIVE); PROTEIN,URINE NEGATIVE (NEGATIVE); UROBILINOGEN,URINE 0.2 (NORMAL) E.U./dL (NORMAL)
[2018-12-01 11:39] LABS: ALBUMIN 3.7 g/dL (3.2-5.5); ALBUMIN/GLOBULIN RATIO 0.8 (1.0-2.2); BILIRUBIN,TOTAL 0.4 mg/dL (0.2-1.0); CALCIUM 10.3 mg/dL (8.5-10.3); CREATININE 1.5 mg/dL (0.4-1.0); TOTAL PROTEIN 8.6 g/dL (6.7-8.2)
[2018-12-01 11:40] LABS: PLATELET MORPHOLOGY RARE GIANT PLATELETS (NORMAL)
[2018-12-01 11:41] LABS: CLARITY,URINE CLEAR (CLEAR)
[2018-12-01] MEDS ORDERED: BUFFERED LIDOCAINE 10 ML SYRINGE SUBQ STA (14:07)
[2018-12-01 15:21] VITALS: BP 179/98
[2018-12-01] MEDS ORDERED: BACITRACIN OINT TOP ONE (15:48)
== END 2018-12-01 16:30 | disposition home or self-care (01) ==
LOC: EDUNIT# → ED 10:25
DX: S01.112A Laceration without foreign body of left eyelid and periocular area, initial encounter (principal); W05.0XXA Fall from non-moving wheelchair, initial encounter; Y92.89 Other specified places as the place of occurrence of the external cause; Z86.73 Personal history of transient ischemic attack (TIA), and cerebral infarction without residual deficits; I10 Essential (primary) hypertension; F03.90 Unspecified dementia, unspecified severity, without behavioral disturbance, psychotic disturbance, mood disturbance, and anxiety; E78.00 Pure hypercholesterolemia, unspecified; Z79.82 Long term (current) use of aspirin
CPT/HCPCS: 12053; 36415; 70450; 71045; 72125; 80053; 81003; 83690; 84484; 85025; 99283; A9270; 81001; 87086

== ENCOUNTER 2018-12-14 13:51 | Outpatient (CLI) | payer MEDICARE, MEDICAID | END 2018-12-14 13:52 | disposition critical access hospital (66) | LOC: EMS 13:51 | PROVIDERS: ATTEND Surgery | DX: R06.02 Shortness of breath (principal) ==

== ENCOUNTER 2018-12-14 13:56 | Emergency (ER) | payer MEDICARE, MEDICAID ==
--- NOTE | 2018-12-14 14:06 | ED Physician Documentation ---
PD HPI CHEST PAIN - Stated complaint Stated Complaint: BRADYCARDIC - History obtained from History obtained from: Patient, EMS - History of Present Illness Timing - onset: Today (This is an 78-year-old woman with history of CVA. She was hospitalized about 3 weeks ago for symptomatic bradycardia with angina. She ruled out at the time and was taken off her beta-blockers and she is not on any AV jacky blockers. Today she developed dizziness and nausea and a near syncopal episode. She was noted to be very bradycardic and brought in by ambulance. She is interested in potential pacemaker placement.) - Additional information Additional information: She received atropine on route and on arrival her pulse is 50-55, the rhythm strip from the ambulance was a junctional rhythm in the 30s. Review of Systems Ten Systems: 10 systems reviewed and negative Constitutional: reports: Reviewed and negative Cardiac: denies: Chest pain / pressure, Palpitations Respiratory: denies: Dyspnea, Cough PD PAST MEDICAL HISTORY - Past Medical History Cardiovascular: Hypertension, High cholesterol Respiratory: None Endocrine/Autoimmune: None GI: GERD : None HEENT: None Psych: Depression Musculoskeletal: Osteoarthritis Derm: None - Past Surgical History Past Surgical History: Yes General: Appendectomy - Present Medications Home Medications: Ambulatory Orders Medication Instructions Recorded Confirmed Loratadine [Claritin] 10 mg PO DAILY 06/27/14 12/14/18 RX: raNITIdine [Zantac] 150 mg PO QPM 06/27/14 12/14/18 Fluticasone [Flonase] 1 sprays TAY QPM 08/23/14 12/14/18 RX: Atorvastatin Calcium 20 mg PO QPM 05/18/16 12/14/18 Anastrozole [Arimidex] 1 mg PO DAILY 06/25/16 12/14/18 Multivitamin [Theragran] 1 each PO DAILY 07/20/16 12/14/18 Calcium Carbonate [Calcium] 600 mg PO BID 06/20/18 12/14/18 Cholecalciferol (Vitamin D3) 1,000 unit PO DAILY 06/20/18 12/14/18 [Vitamin D3] Acetaminophen [Tylenol Extra 1,000 mg PO Q6H PRN 11/25/18 12/14/18 Strength] House Bowel Program 1 each REVIEW DAILY 11/25/18 11/25/18 RX: Aspirin Chewable [St Temo 324 mg PO DAILY 11/25/18 12/14/18 Aspirin] Venlafaxine ER [Effexor ER] 37.5 mg PO DAILY 11/25/18 12/14/18 amLODIPine [Norvasc] 5 mg PO DAILY 11/25/18 12/14/18 - Allergies Allergies/Adverse Reactions: Allergies Allergy/AdvReac Type Severity Reaction Status Date / Time codeine Allergy Unknown Verified 12/01/18 10:32 Penicillins Allergy Not known Verified 12/01/18 10:32 sulfamethoxazole Allergy Unknown Verified 12/01/18 10:32 [From ] trimethoprim [From ] Allergy Unknown Verified 12/14/18 14:05 - Social History Does the pt smoke?: No Smoking Status: Never smoker Does the pt drink ETOH?: No Does the pt have substance abuse?: No - Immunizations Immunizations are current?: Yes - POLST Patient has POLST: No PD ED PE NORMAL - Vitals Vital signs reviewed: Yes - General General: Alert and oriented X 3, No acute distress - HEENT HEENT: PERRL, EOMI - Neck Neck: Supple, no meningeal sign, No bony TTP - Cardiac Cardiac: RRR, No murmur - Respiratory Respiratory: No respiratory distress, Clear bilaterally - Abdomen Abdomen: Non tender - Extremities Extremities: No edema, No calf tenderness / cord - Neuro Neuro: Alert and oriented X 3, Normal speech Results - Vitals Vitals: Vital Signs - 24 hr 12/14/18 12/14/18 12/14/18 13:57 14:10 14:54 Temperature 36.2 C L 36 C L Heart Rate 56 L 41 L 41 L Respiratory 22 17 13 Rate Blood Pressure 178/144 H 114/68 103/77 O2 Saturation 99 98 100 12/14/18 12/14/18 12/14/18 15:21 16:00 17:00 Temperature Heart Rate 45 L 89 92 Respiratory 15 18 16 Rate Blood Pressure 133/86 H 140/128 H 149/86 H O2 Saturation 97 96 95 12/14/18 12/14/18 12/14/18 17:30 18:01 18:43 Temperature 37.1 C 36.7 C Heart Rate 84 88 86 Respiratory 19 15 23 Rate Blood Pressure 155/110 H 147/90 H 148/96 H O2 Saturation 88 L 96 96 12/14/18 12/14/18 12/14/18 19:04 19:30 20:00 Temperature Heart Rate 80 82 67 Respiratory 18 21 12 Rate Blood Pressure 146/94 H 113/91 H 172/70 H O2 Saturation 95 95 100 Oxygen O2 Source [] Room air O2 Source Mechanical ventilator - EKG (time done) 1406 Rate: Rate (enter#) (42) Rhythm: Other (Looks like an indeterminate type II heart block with every other P wave conducting.) Ischemia: Non specific changes - Labs Labs: Laboratory Tests 12/14/18 12/14/18 12/14/18 14:06 14:06 14:06 WBC 14.5 H RBC 4.94 Hgb 14.5 Hct 43.9 MCV 89.0 MCH 29.3 MCHC 32.9 RDW 13.5 Plt Count 340 MPV 11.0 H Neut # (Auto) 10.4 H Lymph # (Auto) 2.5 [place] # (Auto) 0.9 Eos # (Auto) 0.6 Baso # (Auto) 0.1 Absolute Nucleated RBC 0.01 Nucleated RBC % 0.1 Manual Slide Review Indicated Platelet Estimate NORMAL (130-450,000) Platelet Morphology NORMAL APPEARANCE RBC Morph Micro Appear NORMAL APPEARANCE Sodium 138 Potassium 4.7 Chloride 97 L Carbon Dioxide 30 Anion Gap 11.0 BUN 42 H Creatinine 2.2 H Estimated GFR (MDRD) 21 L Glucose 163 H Calcium 11.1 H Total Bilirubin 0.6 AST 23 ALT 16 Alkaline Phosphatase 111 Troponin I < 0.04 Total Protein 8.4 H Albumin 3.9 Globulin 4.5 H Albumin/Globulin Ratio 0.9 L Lipase 79 H PD MEDICAL DECISION MAKING - ED course ED course: Spoke with translational specialist [facility] who will see in consult, deferred to hospitalist for transfer. 1405 I called the son, there was no answer I left a voicemail to call back. Discussing with the patient though she is amenable to a pacemaker, which she obviously will need at this juncture. She was accepted by Dr. Hernandez to [facility] at 1420 and cobras were completed. She needs transfer to a higher level of care for cardiology consultation and pacemaker placement. She became more bradycardic and the atropine was repeated at 2:30 PM. After the second dose of atropine she actually converted back to normal sinus rhythm and remained in the normal heart rate for the remainder of her emergency department stay which was prolonged as there was a significant delay for bed confirmation to [facility] - Critical Care Time(min): 38 Time Includes: Direct patient care, Review records, Reassess patient, Document care, Coordinate care, Medical consult Data interpretation: Labs, Pulse ox Procedures included in critical care time: Peripheral IV Procedures excluded from critical care time: EKG Departure - Departure Disposition: 02 Transfer Acute Care Hosp Clinical Impression: Bradycardia Condition: Critical Discharge Date/Time: 12/14/18 20:00
[2018-12-14 14:28] LABS: ALBUMIN 3.9 g/dL (3.2-5.5); ALBUMIN/GLOBULIN RATIO 0.9 (1.0-2.2); BILIRUBIN,TOTAL 0.6 mg/dL (0.2-1.0); CALCIUM 11.1 mg/dL (8.5-10.3); CREATININE 2.2 mg/dL (0.4-1.0); TOTAL PROTEIN 8.4 g/dL (6.7-8.2)
[2018-12-14] MEDS ORDERED: ATROPINE ABBOJECT 0.5 MG/5 ML SYRINGE IVP STA (14:29)
[2018-12-14] MEDS ORDERED: ATROPINE ABBOJECT 1 MG/10 ML SYRINGE IVP ONE (14:34)
[2018-12-14] MEDS ORDERED: SODIUM CHLORIDE 0.9% 1,000 ML IV ONE (14:47)
[2018-12-14 14:49] LABS: BASOPHILS # (AUTO) 0.1 10^3/uL (0.0-0.1); EOSINOPHILS # (AUTO) 0.6 10^3/uL (0.0-0.7); EOSINOPHILS % (AUTO) 4.2 %; HGB - HEMOGLOBIN 14.5 g/dL (12.0-16.0); LYMPHOCYTES # (AUTO) 2.5 10^3/uL (1.5-3.5); MEAN CORPUSCULAR HEMOGLOBIN 29.3 pg (27.0-31.0); MEAN CORPUSCULAR HGB CONC 32.9 g/dL (32.0-36.0); MONOCYTES # (AUTO) 0.9 10^3/uL (0.0-1.0); MONOCYTES % (AUTO) 6.4 %; NEUTROPHILS # (AUTO) 10.4 10^3/uL (1.5-6.6); NEUTROPHILS % (AUTO) 71.4 %; PLATELET ESTIMATE, MANUAL NORMAL (130-450,000) (NORMAL); PLATELET MORPHOLOGY NORMAL APPEARANCE (NORMAL); PLT - PLATELET COUNT 340 10^3/uL (130-450); RBC MORPHOLOGY (MULTIPLE) NORMAL APPEARANCE (NORMAL); RED BLOOD COUNT 4.94 10^6/uL (4.20-5.40); RED CELL DISTRIBUTION WIDTH 13.5 % (12.0-15.0); WHITE BLOOD COUNT 14.5 x10^3/uL (4.8-10.8)
[2018-12-14 20:42] VITALS: BP 172/70
== END 2018-12-14 20:00 | disposition short-term general hospital (02) ==
LOC: EDUNIT# → ED 13:56
DX: R00.1 Bradycardia, unspecified (principal); I10 Essential (primary) hypertension; E78.00 Pure hypercholesterolemia, unspecified; Z79.82 Long term (current) use of aspirin; Z86.73 Personal history of transient ischemic attack (TIA), and cerebral infarction without residual deficits
CPT/HCPCS: 36415; 80053; 83690; 84484; 85025; 93005; 96361; 96374; 99285; 99291

== ENCOUNTER 2018-12-14 20:00 | Outpatient (CLI) | payer MEDICARE, MEDICAID | END 2018-12-14 20:01 | disposition short-term general hospital (02) | LOC: EMS 20:00 | PROVIDERS: ATTEND Surgery | DX: R00.1 Bradycardia, unspecified (principal); R06.02 Shortness of breath | CPT/HCPCS: A0425; A0427 ==

== ENCOUNTER 2019-02-04 08:00 | Outpatient (CLI) | payer MEDICARE, MEDICAID ==
[2019-02-04 17:07] LABS: CALCIUM 9.7 mg/dL (8.5-10.3); CREATININE 1.3 mg/dL (0.4-1.0)
== END 2019-02-04 23:59 | disposition home or self-care (01) ==
LOC: LAB.R 08:00
PROVIDERS: ATTEND Family Medicine
DX: N18.3 Chronic kidney disease, stage 3 (moderate) (principal)
CPT/HCPCS: 80048

== ENCOUNTER 2019-03-07 08:00 | Outpatient (CLI) | payer MEDICARE, MEDICAID ==
[2019-03-07 17:29] LABS: CALCIUM 9.4 mg/dL (8.5-10.3); CREATININE 1.4 mg/dL (0.4-1.0)
== END 2019-03-07 23:59 | disposition home or self-care (01) ==
LOC: LAB.R 08:00
DX: E87.5 Hyperkalemia (principal)
CPT/HCPCS: 80048

== ENCOUNTER 2019-04-25 15:05 | Outpatient (CLI) | payer MEDICARE, MEDICAID, OTHER ==
[2019-04-25 15:30] LABS: BASOPHILS # (AUTO) 0.1 10^3/uL (0.0-0.1); BASOPHILS % (AUTO) 1.2 %; EOSINOPHILS # (AUTO) 0.8 10^3/uL (0.0-0.7); HGB - HEMOGLOBIN 14.5 g/dL (12.0-16.0); LYMPHOCYTES # (AUTO) 2.7 10^3/uL (1.5-3.5); LYMPHOCYTES % (AUTO) 30.6 %; MEAN CORPUSCULAR HEMOGLOBIN 29.7 pg (27.0-31.0); MEAN CORPUSCULAR HGB CONC 31.8 g/dL (32.0-36.0); MEAN CORPUSCULAR VOLUME 93.4 fL (81.0-99.0); MEAN PLATELET VOLUME 11.7 fL (7.9-10.8); MONOCYTES # (AUTO) 0.9 10^3/uL (0.0-1.0); MONOCYTES % (AUTO) 10.4 %; NEUTROPHILS # (AUTO) 4.2 10^3/uL (1.5-6.6); NEUTROPHILS % (AUTO) 48.6 %; PLT - PLATELET COUNT 299 10^3/uL (130-450); RED BLOOD COUNT 4.88 10^6/uL (4.20-5.40); RED CELL DISTRIBUTION WIDTH 12.6 % (12.0-15.0); WHITE BLOOD COUNT 8.7 x10^3/uL (4.8-10.8)
[2019-04-25 15:43] LABS: CALCIUM 9.9 mg/dL (8.5-10.3); CREATININE 1.5 mg/dL (0.4-1.0); MAGNESIUM 2.2 mg/dL (1.7-2.8); PHOSPHORUS 3.5 mg/dL (2.5-4.6)
== END 2019-04-25 23:59 | disposition home or self-care (01) ==
LOC: LAB.R 15:05
DX: R79.89 Other specified abnormal findings of blood chemistry (principal); E83.30 Disorder of phosphorus metabolism, unspecified; E61.2 Magnesium deficiency
CPT/HCPCS: 80048; 83735; 84100; 85025

== ENCOUNTER 2019-08-10 13:37 | Outpatient (CLI) | payer MEDICARE, MEDICAID ==
--- NOTE | 2019-08-11 10:06 | Mammography Report ---
Reason: HX RIGHT BREAST CA Procedure Date: 08/10/2019 Accession Number: [id number] / [id number] Procedure: [facility]ASTA - Screening Mammo Dig Bilat CPT Code: FULL RESULT: EXAM: Screening Mammo Dig Bilat DATE: 08/10/2019 2:44 PM CLINICAL HISTORY: Screening encounter. Personal history of breast cancer status post right breast lumpectomy. TECHNIQUE: (B) - Bilateral CC, laterally exaggerated CC, MLO views were obtained. COMPARISON: 08/11/2018 through 03/24/2016. PARENCHYMAL PATTERN: (A) - The breast(s) demonstrate(s) scattered fibroglandular densities. FINDINGS: Postsurgical changes are present. There are no suspicious masses, calcifications, or areas of distortion. IMPRESSION: Benign findings. BI-RADS category 2. RECOMMENDATION: (ANNUAL) - Recommend routine annual screening mammography. BI-RADS CATEGORY: (2) - Benign Findings. STANDARD QUALIFYING STATEMENTS: 1. This examination was not reviewed with the aid of Computer-Aided Detection (CAD). 2. A negative or benign imaging report should not preclude biopsy if clinically suspicious findings are present. 3. Dense breasts may obscure an underlying neoplasm. 4. This examination was reviewed without the aid of 3D breast imaging (tomosynthesis).
== END 2019-08-10 13:38 | disposition home or self-care (01) ==
LOC: DI 13:37
PROVIDERS: ATTEND Internal Medicine Hematology & Oncology
DX: Z12.31 Encounter for screening mammogram for malignant neoplasm of breast (principal); Z85.3 Personal history of malignant neoplasm of breast
CPT/HCPCS: 77067

== ENCOUNTER 2019-09-01 12:36 | Outpatient (CLI) | payer MEDICARE, MEDICAID | END 2019-09-01 12:37 | disposition critical access hospital (66) | LOC: EMS 12:36 | PROVIDERS: ATTEND Surgery | DX: S01.112A Laceration without foreign body of left eyelid and periocular area, initial encounter (principal); M54.2 Cervicalgia; W19.XXXA Unspecified fall, initial encounter; Y92.122 Bedroom in nursing home as the place of occurrence of the external cause | CPT/HCPCS: A0425; A0429 ==

== ENCOUNTER 2019-09-01 12:40 | Emergency (ER) | payer MEDICARE, MEDICAID ==
--- NOTE | 2019-09-01 13:02 | ED Physician Documentation ---
PD HPI HEAD INJURY - Stated complaint Stated Complaint: GLF/ HEAD LAC - History obtained from History obtained from: EMS, Caregiver - History of Present Illness Mechanism of head injury: Fell Where head injury occurred: Home Timing - onset: Today Location of injury: Left Associated symptoms: No: LOC Recently seen: Not recently seen - Additional information Additional information: This is an 79-year-old woman who presents with from [facility] with complaints that she had an unwitnessed fall with a laceration above the left eyebrow. Patient has a history of dementia and L hemiplegia. She is on baby aspirin. She is telling me the only thing that hurts is the wound. She cannot tell me where she is or what day it is. She will not open her eyes because she said the lights are too bright. She is not able to provide any further history. Review of Systems Unable to obtain: Dementia PD PAST MEDICAL HISTORY - Past Medical History Cardiovascular: Hypertension, High cholesterol Respiratory: None Endocrine/Autoimmune: None GI: GERD : None HEENT: None Psych: Depression Musculoskeletal: Osteoarthritis Derm: None - Past Surgical History Past Surgical History: Yes General: Appendectomy - Present Medications Home Medications: Ambulatory Orders Medication Instructions Recorded Confirmed Loratadine [Claritin] 10 mg PO DAILY 06/27/14 06/19/19 raNITIdine [Zantac] 150 mg PO QPM 06/27/14 06/19/19 Fluticasone [Flonase] 1 sprays TAY QPM 08/23/14 06/19/19 Atorvastatin Calcium 20 mg PO QPM 05/18/16 06/19/19 Anastrozole [Arimidex] 1 mg PO DAILY 06/25/16 06/19/19 Multivitamin [Theragran] 1 each PO DAILY 07/20/16 06/19/19 Calcium Carbonate [Calcium] 600 mg PO BID 06/20/18 06/19/19 Cholecalciferol (Vitamin D3) 1,000 unit PO DAILY 06/20/18 06/19/19 [Vitamin D3] Acetaminophen [Tylenol Extra 1,000 mg PO Q6H PRN 11/25/18 06/19/19 Strength] Aspirin Chewable [St Temo 324 mg PO DAILY 11/25/18 06/19/19 Aspirin] House Bowel Program 1 each REVIEW DAILY 11/25/18 06/19/19 Venlafaxine ER [Effexor ER] 37.5 mg PO DAILY 11/25/18 06/19/19 amLODIPine [Norvasc] 5 mg PO DAILY 11/25/18 06/19/19 - Allergies Allergies/Adverse Reactions: Allergies Allergy/AdvReac Type Severity Reaction Status Date / Time codeine Allergy Unknown Verified 09/01/19 12:53 Penicillins Allergy Not known Verified 09/01/19 12:53 sulfamethoxazole Allergy Unknown Verified 09/01/19 12:53 [From ] trimethoprim [From ] Allergy Unknown Verified 09/01/19 12:53 - Social History Does the pt smoke?: No Smoking Status: Never smoker Does the pt drink ETOH?: No Does the pt have substance abuse?: No - Immunizations Immunizations are current?: Yes - POLST Patient has POLST: No PD ED PE NORMAL - Vitals Vital signs reviewed: Yes - General General: No acute distress, Well developed/nourished, Other (She is in a cervical collar which remained on until imaging could be obtained.) - HEENT HEENT: Other (There is a laceration of the left forehead down to the eyebrow with a stellate pattern. There is no palpable step-off. Bleeding is contro lled. Patient is squeezing her eyes shut and will not allow me to look at her pupils. Oropharynx is clear.) - Derm Derm: Normal color, Warm and dry, Other (Laceration as noted above) - Extremities Extremities: No deformity, No tenderness to palpate - Neuro Neuro: Other (Patient has flexion contracture of the left upper extremity and is unable to move it. She can barely twitch her foot in the left lower extremity. She is able to move both the Right arm and right leg. No pain with palpation through the long bones of the leg.) Motor: Obeys Commands Results - Vitals Vitals: Vital Signs - 24 hr 09/01/19 12:47 Temperature 36.3 C L Heart Rate 77 Respiratory 16 Rate Blood Pressure 158/84 H O2 Saturation 99 Oxygen O2 Source [Without Activity] Room air O2 Source Room air Procedures - Laceration (location) L forehead Length in cm: 5 Wound type: Stellate, Irregular, Into subcut fat, Clean Neurovascular status: Sensory intact, Motor intact Anesthesia: Lidocaine 2% with epi Wound Preparation: Chlorhexadine, Irrigated copiously NS, Wound explored, To the base, Multiple flaps aligned. No: Debrided extensively, FB identified Skin layer closure: Nylon, Interrupted, Size #-0 - enter number, Sutures - enter # (8) Other: Patient tolerated well, No complications, Tetanus booster given Complexity: Intermediate PD MEDICAL DECISION MAKING - ED course Complexity details: reviewed results ED course: CTs of the head and neck did not show any acute changes. She has encephalomala josue in the right cerebral cortex due to the prior stroke. Wound was repaired and she tolerated this well. It was then dressed with some antibiotic ointment and the patient will be transferred back to the half-way. Departure - Departure Disposition: 01 Home, Self Care Clinical Impression: Laceration, Fall from ground level Condition: Good Instructions: ED Laceration All, ED Head Injury Closed Follow-Up: Mario Reina, [Primary Care Provider] - Comments: After 24 hours you may wash the wound with mild soap and water. Apply thin layer of antibiotic ointment. Sutures should be removed in 5 days. Follow-up if any signs of infection to include spreading redness, fever, purulent drainage. Her head CT did not show any acute changes.
--- NOTE | 2019-09-01 14:05 | CT Report ---
Reason: head injury; dementia Procedure Date: 09/01/2019 Accession Number: [id number] / [id number] Procedure: CT - HEAD WO CPT Code: Final Report FULL RESULT: EXAM: CT HEAD EXAM DATE: 09/01/2019 01:37 PM. CLINICAL HISTORY: Head injury; dementia. COMPARISON: CERVICAL SPINE W/O 12/01/2018 10:47 AM HEAD W/O 12/01/2018 10:47 AM. TECHNIQUE: Multiaxial CT images were obtained from the foramen magnum to the vertex. Reformats: Sagittal and coronal. IV contrast: None. In accordance with CT protocol optimization, one or more of the following dose reduction techniques were utilized for this exam: automated exposure control, adjustment of mA and/or KV based on patient size, or use of iterative reconstructive technique. FINDINGS: Parenchyma: There is a large area of parenchymal hypodensity and encephalomalacia in the right cerebral hemisphere. There is a large area of encephalomalacia involving the right frontal lobe, parietal lobe, and occipital lobe. The encephalomalacia in the right posterior and medial occipital lobe appears increased since 12/01/2018. There is a small to moderate region of encephalomalacia in the left frontal lobe which appears unchanged. Negative for acute intracranial hemorrhage. There is no midline shift or herniation. Extraaxial Spaces: No subdural or epidural collections identified. Ventricles: There is asymmetric enlargement of the right lateral ventricle which appears without significant change. Sinuses and Orbits: Imaged paranasal sinuses, orbits, and mastoids show no significant abnormality. Bones: There is an anterior left scalp hematoma. There is no acute fracture. Other: None. IMPRESSION: 1. Large area of encephalomalacia consistent with old infarct in the right cerebral hemisphere involving frontal, parietal, temporal and occipital lobes. The encephalomalacia involvement of the right occipital lobe is increased compared with 12/01/2018. 2. Negative for acute hemorrhage or midline shift. 3. Anterior left scalp hematoma without fracture. 4. Old left frontal infarct unchanged. RADIA
--- NOTE | 2019-09-01 14:09 | CT Report ---
Reason: fall; dementia; head injury Procedure Date: 09/01/2019 Accession Number: [id number] / [id number] Procedure: CT - CERVICAL SPINE WO CPT Code: Final Report FULL RESULT: EXAM: CT CERVICAL SPINE WITHOUT CONTRAST DATE: 09/01/2019 01:37 PM. HISTORY: Fall; dementia; head injury. COMPARISONS: CERVICAL SPINE W/O 12/01/2018 10:47 AM HEAD W/O 09/01/2019 1:33 PM HEAD W/O 12/01/2018 10:47 AM. TECHNIQUE: Thin-section axial images were acquired of the cervical spine without contrast. Post-processing: Coronal and sagittal reformats. Other: None. In accordance with CT protocol optimization, one or more of the following dose reduction techniques were utilized for this exam: automated exposure control, adjustment of mA and/or KV based on patient size, or use of iterative reconstructive technique. FINDINGS: Alignment: Mild convex left cervicothoracic scoliosis. Bones: No fracture or bone lesion. Interspace Levels/Facets: Moderate loss of disk space height at C4-C5 through C6-C7 levels. C1-C2: Unremarkable. C2-C3: Unremarkable. C3-C4: Mild bilateral neural foraminal narrowing due to uncovertebral and facet joint hypertrophy. C4-C5: Mild bilateral neural foraminal narrowing due to uncovertebral and facet joint hypertrophy. C5-C6: Mild to moderate right and mild left neural foraminal narrowing from uncovertebral joint hypertrophy. C6-C7: Mild bilateral neural foraminal narrowing due to uncovertebral and facet joint hypertrophy. C7-T1: Unremarkable. Musculature: Normal. No fatty atrophy. Other: The paravertebral and prevertebral soft tissues are unremarkable. Left subclavian pacemaker. Right apical paraseptal emphysema. Biapical scarring. Right MCA encephalomalacia partially imaged. IMPRESSION: 1. Mild to moderate degenerative changes. 2. No cervical spine fracture. RADIA
[2019-09-01] MEDS ORDERED: LIDOCAINE 2%-EPI 1:100000 20 ML MDV SUBQ STA (14:16)
[2019-09-01] MEDS ORDERED: TETANUS/DIPHTHERIA/PERTUSSIS 0.5 ML SYRINGE IM ONE (14:57)
[2019-09-01 15:09] VITALS: BP 155/79
== END 2019-09-01 15:48 | disposition home or self-care (01) ==
LOC: EDUNIT# → ED 12:40
DX: S01.81XA Laceration without foreign body of other part of head, initial encounter (principal); W01.198A Fall on same level from slipping, tripping and stumbling with subsequent striking against other object, initial encounter; Y92.129 Unspecified place in nursing home as the place of occurrence of the external cause; Z23 Encounter for immunization; M50.322 Other cervical disc degeneration at C5-C6 level; I69.354 Hemiplegia and hemiparesis following cerebral infarction affecting left non-dominant side; F03.90 Unspecified dementia, unspecified severity, without behavioral disturbance, psychotic disturbance, mood disturbance, and anxiety; I10 Essential (primary) hypertension; Z79.82 Long term (current) use of aspirin
CPT/HCPCS: 12052; 70450; 72125; 90471

== ENCOUNTER 2020-02-10 08:00 | Outpatient (CLI) | payer MEDICARE, MEDICAID ==
[2020-02-10 16:03] LABS: BASOPHILS # (AUTO) 0.1 10^3/uL (0.0-0.1); EOSINOPHILS # (AUTO) 0.5 10^3/uL (0.0-0.7); EOSINOPHILS % (AUTO) 6.2 %; HGB - HEMOGLOBIN 14.8 g/dL (12.0-16.0); LYMPHOCYTES # (AUTO) 2.8 10^3/uL (1.5-3.5); LYMPHOCYTES % (AUTO) 34.5 %; MEAN CORPUSCULAR HEMOGLOBIN 29.2 pg (27.0-31.0); MEAN CORPUSCULAR HGB CONC 31.8 g/dL (32.0-36.0); MEAN CORPUSCULAR VOLUME 92.1 fL (81.0-99.0); MEAN PLATELET VOLUME 12.1 fL (7.9-10.8); MONOCYTES # (AUTO) 0.7 10^3/uL (0.0-1.0); MONOCYTES % (AUTO) 8.3 %; NEUTROPHILS % (AUTO) 49.6 %; PLT - PLATELET COUNT 257 10^3/uL (130-450); RED BLOOD COUNT 5.06 10^6/uL (4.20-5.40); RED CELL DISTRIBUTION WIDTH 13.4 % (12.0-15.0); WHITE BLOOD COUNT 8.1 x10^3/uL (4.8-10.8)
[2020-02-10 16:09] LABS: CALCIUM 9.3 mg/dL (8.5-10.3); CREATININE 1.3 mg/dL (0.4-1.0)
== END 2020-02-10 23:59 | disposition home or self-care (01) ==
LOC: LAB.R 08:00
PROVIDERS: ATTEND Family Medicine
DX: U07.1 COVID-19 (principal); I10 Essential (primary) hypertension
CPT/HCPCS: 80048; 85025

== ENCOUNTER 2020-09-01 14:05 | Outpatient (CLI) | payer MEDICARE, MEDICAID ==
[2020-09-01 14:48] LABS: BASOPHILS # (AUTO) 0.1 10^3/uL (0.0-0.1); BASOPHILS % (AUTO) 1.2 %; EOSINOPHILS # (AUTO) 0.4 10^3/uL (0.0-0.7); EOSINOPHILS % (AUTO) 4.2 %; HGB - HEMOGLOBIN 15.2 g/dL (12.0-16.0); LYMPHOCYTES # (AUTO) 2.6 10^3/uL (1.5-3.5); LYMPHOCYTES % (AUTO) 26.5 %; MEAN CORPUSCULAR HEMOGLOBIN 30.5 pg (27.0-31.0); MEAN CORPUSCULAR HGB CONC 32.1 g/dL (32.0-36.0); MEAN PLATELET VOLUME 11.6 fL (7.9-10.8); MONOCYTES # (AUTO) 0.6 10^3/uL (0.0-1.0); MONOCYTES % (AUTO) 6.5 %; NEUTROPHILS # (AUTO) 5.9 10^3/uL (1.5-6.6); NEUTROPHILS % (AUTO) 61.2 %; PLT - PLATELET COUNT 301 10^3/uL (130-450); RED BLOOD COUNT 4.98 10^6/uL (4.20-5.40); RED CELL DISTRIBUTION WIDTH 12.7 % (12.0-15.0); WHITE BLOOD COUNT 9.7 x10^3/uL (4.8-10.8)
== END 2020-09-01 23:59 | disposition home or self-care (01) ==
LOC: LAB.R 14:05
DX: I67.9 Cerebrovascular disease, unspecified (principal); I69.354 Hemiplegia and hemiparesis following cerebral infarction affecting left non-dominant side
CPT/HCPCS: 85025; 85651

== ENCOUNTER 2021-01-15 05:30 | Outpatient (CLI) | payer MEDICARE, MEDICAID ==
[2021-01-15 06:59] LABS: BASOPHILS # (AUTO) 0.1 10^3/uL (0.0-0.1); EOSINOPHILS # (AUTO) 0.8 10^3/uL (0.0-0.7); EOSINOPHILS % (AUTO) 8.1 %; HCT - HEMATOCRIT 40.5 % (37.0-47.0); HGB - HEMOGLOBIN 12.9 g/dL (12.0-16.0); LYMPHOCYTES % (AUTO) 40.8 %; MEAN CORPUSCULAR HEMOGLOBIN 29.5 pg (27.0-31.0); MEAN CORPUSCULAR HGB CONC 31.9 g/dL (32.0-36.0); MEAN CORPUSCULAR VOLUME 92.5 fL (81.0-99.0); MEAN PLATELET VOLUME 12.8 fL (7.9-10.8); MONOCYTES % (AUTO) 10.1 %; NEUTROPHILS # (AUTO) 3.9 10^3/uL (1.5-6.6); NEUTROPHILS % (AUTO) 39.7 %; PLT - PLATELET COUNT 223 10^3/uL (130-450); RED BLOOD COUNT 4.38 10^6/uL (4.20-5.40); RED CELL DISTRIBUTION WIDTH 12.2 % (12.0-15.0); WHITE BLOOD COUNT 9.7 x10^3/uL (4.8-10.8)
[2021-01-15 07:07] LABS: ALBUMIN 3.1 g/dL (3.2-5.5); ALBUMIN/GLOBULIN RATIO 0.8 (1.0-2.2); ALKALINE PHOSPHATASE 93 IU/L (42-121); ALT ALANINE AMINOTRANSFERASE < 10 IU/L (10-60); AST ASPARTATE AMINOTRANSFERASE 13 IU/L (10-42); BILIRUBIN,TOTAL 0.6 mg/dL (0.2-1.0); BUN - BLOOD UREA NITROGEN 48 mg/dL (6-20); CALCIUM 10.7 mg/dL (8.5-10.3); CARBON DIOXIDE - CO2 27 mmol/L (21-32); CHLORIDE 102 mmol/L (101-111); CREATININE 1.3 mg/dL (0.4-1.0); GFR - MDRD 39 (>89); GLUCOSE 92 mg/dL (70-100); POTASSIUM 3.7 mmol/L (3.5-5.0); SODIUM 138 mmol/L (135-145)
== END 2021-01-15 23:59 | disposition home or self-care (01) ==
LOC: LAB.R 05:30
DX: I10 Essential (primary) hypertension (principal); I45.9 Conduction disorder, unspecified; I25.9 Chronic ischemic heart disease, unspecified
CPT/HCPCS: 36415; 80053; 82627; 84403; 85025

== ENCOUNTER 2021-04-04 08:31 | Outpatient (CLI) | payer MEDICARE, MEDICAID | END 2021-04-04 08:32 | disposition home or self-care (01) | LOC: LAB.R 08:31 | PROVIDERS: ATTEND Family Medicine | DX: E25.9 Adrenogenital disorder, unspecified (principal) | CPT/HCPCS: 36415; 81599; 84402; 84403 ==

== ENCOUNTER 2021-04-17 06:50 | Outpatient (CLI) | payer MEDICARE, MEDICAID ==
[2021-04-17 16:55] LABS: BASOPHILS # (AUTO) 0.1 10^3/uL (0.0-0.1); BASOPHILS % (AUTO) 1.3 %; EOSINOPHILS # (AUTO) 0.7 10^3/uL (0.0-0.7); EOSINOPHILS % (AUTO) 8.5 %; HGB - HEMOGLOBIN 12.6 g/dL (12.0-16.0); LYMPHOCYTES # (AUTO) 3.3 10^3/uL (1.5-3.5); LYMPHOCYTES % (AUTO) 39.7 %; MEAN CORPUSCULAR HEMOGLOBIN 29.1 pg (27.0-31.0); MEAN CORPUSCULAR HGB CONC 31.5 g/dL (32.0-36.0); MEAN CORPUSCULAR VOLUME 92.4 fL (81.0-99.0); MEAN PLATELET VOLUME 12.9 fL (7.9-10.8); MONOCYTES # (AUTO) 0.9 10^3/uL (0.0-1.0); NEUTROPHILS # (AUTO) 3.3 10^3/uL (1.5-6.6); NEUTROPHILS % (AUTO) 39.3 %; PLT - PLATELET COUNT 222 10^3/uL (130-450); RED BLOOD COUNT 4.33 10^6/uL (4.20-5.40); RED CELL DISTRIBUTION WIDTH 13.3 % (12.0-15.0); WHITE BLOOD COUNT 8.4 x10^3/uL (4.8-10.8)
[2021-04-17 17:01] LABS: ALBUMIN 3.3 g/dL (3.2-5.5); ALBUMIN/GLOBULIN RATIO 0.8 (1.0-2.2); BILIRUBIN,TOTAL 0.4 mg/dL (0.2-1.0); CALCIUM 10.4 mg/dL (8.5-10.3); CREATININE 1.2 mg/dL (0.4-1.0); TOTAL PROTEIN 7.2 g/dL (6.7-8.2)
== END 2021-04-17 23:59 | disposition home or self-care (01) ==
LOC: LAB.R 06:50
PROVIDERS: ATTEND Nurse Practitioner
DX: R40.0 Somnolence (principal); R63.0 Anorexia
CPT/HCPCS: 80053; 85025

== ENCOUNTER 2021-07-02 08:00 | Outpatient (CLI) | payer MEDICARE, MEDICAID ==
[2021-07-02 16:51] LABS: BASOPHILS # (AUTO) 0.1 10^3/uL (0.0-0.1); BASOPHILS % (AUTO) 0.9 %; EOSINOPHILS # (AUTO) 0.7 10^3/uL (0.0-0.7); EOSINOPHILS % (AUTO) 4.7 %; HCT - HEMATOCRIT 41.6 % (37.0-47.0); HGB - HEMOGLOBIN 12.9 g/dL (12.0-16.0); LYMPHOCYTES # (AUTO) 3.1 10^3/uL (1.5-3.5); LYMPHOCYTES % (AUTO) 22.6 %; MEAN CORPUSCULAR HEMOGLOBIN 28.9 pg (27.0-31.0); MEAN CORPUSCULAR VOLUME 93.1 fL (81.0-99.0); MEAN PLATELET VOLUME 11.7 fL (7.9-10.8); MONOCYTES # (AUTO) 1.4 10^3/uL (0.0-1.0); MONOCYTES % (AUTO) 10.3 %; NEUTROPHILS # (AUTO) 8.4 10^3/uL (1.5-6.6); NEUTROPHILS % (AUTO) 61.1 %; PLT - PLATELET COUNT 253 10^3/uL (130-450); RED BLOOD COUNT 4.47 10^6/uL (4.20-5.40); RED CELL DISTRIBUTION WIDTH 13.4 % (12.0-15.0); WHITE BLOOD COUNT 13.7 x10^3/uL (4.8-10.8)
[2021-07-02 16:59] LABS: CALCIUM 10.3 mg/dL (8.5-10.3); CREATININE 1.4 mg/dL (0.4-1.0); POTASSIUM 3.9 mmol/L (3.5-5.0)
== END 2021-07-02 23:59 | disposition home or self-care (01) ==
LOC: LAB.R 08:00
PROVIDERS: ATTEND Family Medicine
DX: E78.5 Hyperlipidemia, unspecified (principal); R11.0 Nausea; R29.6 Repeated falls; E63.9 Nutritional deficiency, unspecified; D63.1 Anemia in chronic kidney disease
CPT/HCPCS: 80048; 85025

== ENCOUNTER 2021-07-30 08:00 | Outpatient (CLI) | payer MEDICARE, MEDICAID ==
[2021-07-30 16:16] LABS: CALCIUM 10.1 mg/dL (8.5-10.3); CREATININE 1.2 mg/dL (0.4-1.0); POTASSIUM 3.7 mmol/L (3.5-5.0)
== END 2021-07-30 23:59 | disposition home or self-care (01) ==
LOC: LAB.R 08:00
PROVIDERS: ATTEND Family Medicine
DX: E78.5 Hyperlipidemia, unspecified (principal); E87.6 Hypokalemia; R63.4 Abnormal weight loss
CPT/HCPCS: 80048

== ENCOUNTER 2022-02-23 09:34 | Outpatient (CLI) | payer MEDICARE, MEDICAID ==
[2022-02-23 09:46] LABS: BASOPHILS # (AUTO) 0.1 10^3/uL (0.0-0.1); BASOPHILS % (AUTO) 1.4 %; EOSINOPHILS # (AUTO) 0.6 10^3/uL (0.0-0.7); EOSINOPHILS % (AUTO) 6.8 %; HCT - HEMATOCRIT 39.3 % (37.0-47.0); HGB - HEMOGLOBIN 12.3 g/dL (12.0-16.0); LYMPHOCYTES # (AUTO) 3.3 10^3/uL (1.5-3.5); LYMPHOCYTES % (AUTO) 36.5 %; MEAN CORPUSCULAR HEMOGLOBIN 29.3 pg (27.0-31.0); MEAN CORPUSCULAR HGB CONC 31.3 g/dL (32.0-36.0); MEAN CORPUSCULAR VOLUME 93.6 fL (81.0-99.0); MEAN PLATELET VOLUME 12.7 fL (7.9-10.8); MONOCYTES # (AUTO) 0.9 10^3/uL (0.0-1.0); MONOCYTES % (AUTO) 9.7 %; NEUTROPHILS # (AUTO) 4.2 10^3/uL (1.5-6.6); NEUTROPHILS % (AUTO) 45.4 %; PLT - PLATELET COUNT 256 10^3/uL (130-450); RED CELL DISTRIBUTION WIDTH 13.9 % (12.0-15.0); WHITE BLOOD COUNT 9.2 x10^3/uL (4.8-10.8)
[2022-02-23 10:01] LABS: ALBUMIN 3.1 g/dL (3.2-5.5); ALBUMIN/GLOBULIN RATIO 0.8 (1.0-2.2); ALKALINE PHOSPHATASE 104 IU/L (42-121); ALT ALANINE AMINOTRANSFERASE 11 IU/L (10-60); AST ASPARTATE AMINOTRANSFERASE 14 IU/L (10-42); BILIRUBIN,TOTAL 0.5 mg/dL (0.2-1.0); BUN - BLOOD UREA NITROGEN 36 mg/dL (6-20); CALCIUM 9.8 mg/dL (8.5-10.3); CARBON DIOXIDE - CO2 27 mmol/L (21-32); CHLORIDE 103 mmol/L (101-111); CHOL/HDL RATIO 4.3 (<4.4); CHOLESTEROL 138 mg/dL; CREATININE 1.2 mg/dL (0.4-1.0); GFR - MDRD 43 (>89); GLUCOSE 90 mg/dL (70-100); HDL CHOLESTEROL 32 mg/dL; LDL CHOLESTEROL,CALCULATED 71 mg/dL; LDL/HDL RATIO 2.2 (<4.4); SODIUM 139 mmol/L (135-145); TOTAL PROTEIN 7.1 g/dL (6.7-8.2); TRIGLYCERIDES 174 mg/dL; VLDL CHOLESTEROL 35 mg/dL
[2022-02-23 10:14] LABS: THYROID STIMULATING HORMONE 1.88 uIU/mL (0.34-5.60)
[2022-02-23 10:16] LABS: FREE T4 (FREE THYROXINE) 0.94 ng/dL (0.58-1.64)
[2022-02-23 11:40] LABS: ESTIMATED AVERAGE GLUCOSE 108 mg/dL (70-100); HEMOGLOBIN A1c% 5.4 % (4.27-6.07)
== END 2022-02-23 09:35 | disposition home or self-care (01) ==
LOC: LAB.R 09:34
PROVIDERS: ATTEND Hospitalist
DX: E78.5 Hyperlipidemia, unspecified (principal); R53.83 Other fatigue; D64.9 Anemia, unspecified
CPT/HCPCS: 80053; 80061; 82607; 83036; 83721; 84439; 84443; 85025

== ENCOUNTER 2022-04-21 17:14 | Emergency (ER) | payer MEDICARE, MEDICAID ==
--- NOTE | 2022-04-21 17:33 | ED Physician Documentation ---
History of Present Illness - Stated complaint Stated Complaint: HIGH BP - History obtained from History obtained from: Patient - Additonal information Additional information: 82-year-old woman presents by ambulance from a local [facility]dc for the evaluation of asymptomatic elevated blood pressure and concern for pneumonia. Recent diagnosis of rhinovirus but now developed reportedly right lower lobe crackles. They also noted her blood pressure to be as high as 200/112 at the fdc. No associated chest pain. She says her breathing is okay. They reported to me that she had a headache but she says she does not to me. Review of Systems Unable to obtain: Dementia PD PAST MEDICAL HISTORY - Past Medical History Cardiovascular: Hypertension, High cholesterol Respiratory: None Endocrine/Autoimmune: None GI: GERD : None HEENT: None Psych: Depression Musculoskeletal: Osteoarthritis Derm: None - Past Surgical History Past Surgical History: Yes General: Appendectomy - Present Medications Home Medications: Ambulatory Orders Medication Instructions Recorded Confirmed Atorvastatin Calcium 20 mg PO QPM 05/18/16 04/21/22 Calcium Carbonate [Calcium] 600 mg PO BID 06/20/18 04/21/22 Cholecalciferol (Vitamin D3) 1,000 unit PO DAILY 06/20/18 04/21/22 [Vitamin D3] Acetaminophen [Tylenol Extra 1,000 mg PO Q6H PRN 11/25/18 04/21/22 Strength] Aspirin Chewable [St Temo 81 mg PO DAILY 11/25/18 04/21/22 Aspirin] House Bowel Program 1 each REVIEW DAILY 11/25/18 04/21/22 Albuterol Sulfate [Proair Hfa 2 puffs INH QID PRN 04/21/22 04/21/22 Inhaler] Azithromycin [Zithromax] 1 tab PO DAILY #4 tab 04/21/22 Cyanocobalamin (Vitamin B-12) 500 mcg PO DAILY 04/21/22 04/21/22 [Vitamin B-12] Folic Acid 1 tab PO DAILY 04/21/22 04/21/22 Lidocaine 1 patch TOP DAILY 04/21/22 04/21/22 Mirtazapine 15 mg PO HS 04/21/22 04/21/22 Potassium Chloride 10 meq PO DAILY 04/21/22 04/21/22 guaiFENesin [Chest Congestion 200 mg PO Q6HR PRN 04/21/22 04/21/22 Relief] - Allergies Allergies/Adverse Reactions: Allergies Allergy/AdvReac Type Severity Reaction Status Date / Time codeine Allergy Unknown Verified 04/21/22 17:32 Penicillins Allergy Not known Verified 04/21/22 17:32 sulfamethoxazole Allergy Unknown Verified 04/21/22 17:32 [From ] trimethoprim [From ] Allergy Unknown Verified 04/21/22 17:32 - Social History Does the pt smoke?: No Smoking Status: Never smoker Does the pt drink ETOH?: No Does the pt have substance abuse?: No - Immunizations Immunizations are current?: Yes - POLST Patient has POLST: No PD ED PE NORMAL - Vitals Vital signs reviewed: Yes - General General: No acute distress, Other (She is alert and oriented to person only) - HEENT HEENT: PERRL, EOMI - Neck Neck: Supple, no meningeal sign, No bony TTP - Cardiac Cardiac: RRR, No murmur - Respiratory Respiratory: No respiratory distress, Clear bilaterally - Abdomen Abdomen: Non tender - Extremities Extremities: No edema, No calf tenderness / cord Results - Vitals Vitals: Vital Signs - 24 hr 04/21/22 04/21/22 17:19 19:20 Temperature 36.4 C L 36.6 C Heart Rate 70 75 Respiratory 24 16 Rate Blood Pressure 153/101 H 170/90 H O2 Saturation 97 100 Oxygen O2 Source [Without Activity] Room air O2 Source Room air - Labs Labs: Laboratory Tests 04/21/22 04/21/22 04/21/22 17:48 17:48 17:48 WBC 13.6 H RBC 4.81 Hgb 13.9 Hct 44.6 MCV 92.7 MCH 28.9 MCHC 31.2 L RDW 12.8 Plt Count 262 MPV 12.2 H Neut # (Auto) 8.7 H Lymph # (Auto) 2.9 [place] # (Auto) 1.4 H Eos # (Auto) 0.5 Baso # (Auto) 0.1 Absolute Nucleated RBC 0.00 Nucleated RBC % 0.0 Sodium 140 Potassium 4.1 Chloride 107 Carbon Dioxide 26 Anion Gap 7.0 BUN 57 H Creatinine 1.3 H Estimated GFR (MDRD) 39 L Glucose 90 Lactic Acid 0.8 Calcium 9.8 PD MEDICAL DECISION MAKING - ED course ED course: 82-year-old woman with recent known rhinovirus infection presents with concern for pneumonia and asymptomatic elevated blood pressures at the fdc. Her chest x-ray did show probably a mild pneumonia and in the setting of her leukocytosis this is treated. She was given azithromycin given the reading of atypicality on the x-ray. Per ACE[employer] policy guidelines no need for immediate blood pressure control. Departure - Departure Disposition: 01 Home, Self Care Clinical Impression: Pneumonia Condition: Good Record reviewed to determine appropriate education?: Yes Instructions: Pneumonia Dc Prescriptions: Azithromycin [Zithromax] 1 tab PO DAILY #4 tab Comments: Blood pressure here 150/100, possible pneumonia on x-ray and started on antibiotics. Monitor blood pressures and treat per medical reception orders at fdc. Discharge Date/Time: 04/21/22 19:29
[2022-04-21 17:52] LABS: BASOPHILS # (AUTO) 0.1 10^3/uL (0.0-0.1); BASOPHILS % (AUTO) 0.7 %; EOSINOPHILS # (AUTO) 0.5 10^3/uL (0.0-0.7); EOSINOPHILS % (AUTO) 3.5 %; HCT - HEMATOCRIT 44.6 % (37.0-47.0); HGB - HEMOGLOBIN 13.9 g/dL (12.0-16.0); LYMPHOCYTES # (AUTO) 2.9 10^3/uL (1.5-3.5); MEAN CORPUSCULAR HEMOGLOBIN 28.9 pg (27.0-31.0); MEAN CORPUSCULAR HGB CONC 31.2 g/dL (32.0-36.0); MEAN CORPUSCULAR VOLUME 92.7 fL (81.0-99.0); MEAN PLATELET VOLUME 12.2 fL (7.9-10.8); MONOCYTES # (AUTO) 1.4 10^3/uL (0.0-1.0); MONOCYTES % (AUTO) 10.3 %; NEUTROPHILS # (AUTO) 8.7 10^3/uL (1.5-6.6); NEUTROPHILS % (AUTO) 64.3 %; PLT - PLATELET COUNT 262 10^3/uL (130-450); RED BLOOD COUNT 4.81 10^6/uL (4.20-5.40); RED CELL DISTRIBUTION WIDTH 12.8 % (12.0-15.0); WHITE BLOOD COUNT 13.6 x10^3/uL (4.8-10.8)
[2022-04-21 18:02] LABS: CALCIUM 9.8 mg/dL (8.5-10.3); CREATININE 1.3 mg/dL (0.4-1.0); POTASSIUM 4.1 mmol/L (3.5-5.0)
--- NOTE | 2022-04-21 18:09 | XRAY Report ---
PROCEDURE: Chest 1 View X-Ray INDICATIONS: cough TECHNIQUE: One view of the chest was acquired. COMPARISON: 12/01/2018 FINDINGS: Surgical changes and devices: Dual-lead left cardiac pacemaker is in place in the absence of prior ex am.. Lungs and pleura: No pleural effusions or pneumothorax. Bilateral interstitial prominence. Mediastinum: Mediastinal contours appear normal. Heart size is normal. Bones and chest wall: No suspicious bony lesions. Overlying soft tissues appear unremarkable. IMPRESSION: Bilateral interstitial prominence which could represent chronic lung disease, pulmonary edema or atyp ical pneumonia. Reviewed by: Noemi Jones MD, PhD on 04/21/2022 6:08 PM PDT Approved by: Noemi Jones MD, PhD on 04/21/2022 6:08 PM PDT Station ID: [id number]
[2022-04-21] MEDS ORDERED: AZITHROMYCIN 250 MG TABLET PO STA (18:16)
[2022-04-21 19:22] VITALS: BP 170/90
== END 2022-04-21 19:29 | disposition home or self-care (01) ==
LOC: EDUNIT# → ED 17:14
DX: J18.9 Pneumonia, unspecified organism (principal)
CPT/HCPCS: 36415; 71045; 80048; 83605; 85025; 99281; 99284; A9270

== ENCOUNTER 2022-04-21 19:25 | Outpatient (CLI) | payer MEDICARE, MEDICAID | END 2022-04-21 19:26 | disposition home or self-care (01) | LOC: EMS 19:25 | PROVIDERS: ATTEND Emergency Medicine | DX: J18.9 Pneumonia, unspecified organism (principal); R41.0 Disorientation, unspecified | CPT/HCPCS: A0425; A0428 ==

== ENCOUNTER → 2022-04-21 | Outpatient (CLI) | payer MEDICARE, MEDICAID | END | disposition critical access hospital (66) | LOC: EMS 17:06 | DX: I10 Essential (primary) hypertension (principal); R51.9 Headache, unspecified | CPT/HCPCS: A0425; A0429 ==

== ENCOUNTER 2022-04-24 08:00 | Outpatient (CLI) | payer MEDICARE, MEDICAID | END 2022-04-24 23:59 | disposition home or self-care (01) | LOC: LAB.R 08:00 | PROVIDERS: ATTEND Hospitalist | DX: I11.0 Hypertensive heart disease with heart failure (principal) | CPT/HCPCS: 83880 ==